=== PATIENT | male | born 1935 | race Caucasian/White ===

== ENCOUNTER 2020-10-02 08:23 | Outpatient (CLI) | payer MEDICARE, MEDICAID, SELFPAY ==
[2020-10-02 08:28] VITALS: BMI 22.9
--- NOTE | 2020-10-02 08:52 | ECG_ITS ---
[facility] Test Date: 2020-10-02 Pat Name: Chapo Chao Department: Room: Gender: Male Broom Stitcher: : 1935 Requested By: Poonam Miller Order Number: [id number] Kamala MD: Poonam Miller M.D. Interpretive Statements NAME OF STUDY: LEXISCAN SESTAMIBI STRESS TEST INDICATION: CAD, Pre op clearnce PROCEDURE: At the baseline, the blood pressure was 139/95 mmHg with a heart rate of 56 bpm. The electrocardiogram showed sinus bradycardia with isolated PVCs, normal axis. Poor anterior R wave progression. Nonspecific ST depression. The Lexiscan was infused over a period of 20 seconds. A total of 0.4 milligrams of Lexiscan was infused. The stress phase was continued for a total of 5 minutes. Heart rate at the end of the stress phase was 70 bpm with a blood pressure 139/90 mmHg. The EKG at the peak infusion revealed sinus rhythm at 70 bpm with no significant ST-T wave changes. Sestamibi was injected 20 seconds after the Lexiscan infusion. Blood pressure at the end of the recovery phase was 158/87 mmHg with a heart rate of 62 beats per minute. CONCLUSION: 1. No significant EKG changes with the LexiScan infusion 2. No LexiScan induced chest pain or cardiac arrhythmia. 3. Normal blood pressure and heart rate response. 4. Sestamibi/sestamibi perfusion scan pending; see separate report. Electronically Signed On 10-02-2020 20:03:23 COOLING TOWER OPERATOR by Poonam Miller M.D. [id number]
--- NOTE | 2020-10-02 08:53 | NMCV_ITS ---
NM fernando perf SPECT r/s* [id number] Chapo Chao Age: 84 Gender: M : 1935 Exam Date: 10/02/2020 09:47 Ordering Phys: Poonam Miller MD ([email or web address]) Technologist: GREG Yan Exam Location: [facility] Indications: Coronary artery disease, Pre op clearance, AAA STRESS TEST Please see separate stress test report in Ephiphany for full findings IMAGE PROTOCOL Rest/Stress 1 Lexiscan Day Radiopharmaceutical Dose (mCi) Administration Site Administered by Rest: Tc-99m 10.9 IV GREG Yan Sestamibi Stress:Tc-99m 32.4 IV GREG Yan Sestamibi Rest: 02-Oct-2020 60 Discovery 630 Stress: 02-Oct-2020 45 Discovery 630 0.4mg Lexiscan. Images obtained in supine and prone position. SPECT RESULTS Technical Quality: Good Raw Data Analysis: Normal Image Corrections: Patient motion artifact - motion correction applied to stress supine only Summed Stress Score: 20 Summed Rest Score: 19 Summed Difference Score: 2 PERFUSION FINDINGS Large sized perfusion abnormality of entire inferior, mid to apical inferoseptal, mid to apical inferolateral and apical smith on rest and stress images. FUNCTIONAL RESULTS (calculated via Gated SPECT) Stress Image LV EF (%): 38 Stress EDV (mL):94 TID: 0.86 Stress ESV (mL):58 FUNCTIONAL FINDINGS: The left ventricle is normal in size. Transient Ischemia Dilatation of 0.86. The left ventricular ejection fraction is moderately reduced with a value of 38%. There is global hypokinesis more prononunced in inferior, mid to apical lateral and apical smith. IMPRESSIONS 1. Large sized predominantly fixed perfusion abnormality of entire inferior, mid to apical inferoseptal, apical lateral and apical smith. 2. This is suggestive of old myocardial infarction in right coronary artery and circumflex artery territory or attenuation artifact. 3. The left ventricular ejection fraction is moderately reduced with a value of 38%. 4. There is global hypokinesis more prononunced in inferior, mid to apical lateral and apical smith. 5. No significant coronary ischemia based on this study. Poonam Miller MD (Electronically Signed) Final Date: 07 October 2020 08:35 S
[2020-10-02 10:30] VITALS: BP 158/87; PULSE 66
[2020-10-02] MEDS: regadenoson 0.4 Mg/5 ml Syringe IVP (10:32)
--- NOTE | 2020-10-02 12:45 | USCV_ITS ---
Chapo Chao Age: 84 Gender: M : 1935 Exam Date: 10/02/2020 08:45 Ordering Phys: Poonam Miller MD ([email or web address]) Technologist: Mingo Rivas Exam Location: [facility] [place] Indication: CAROTID ARTERY STENOSIS Risk Factors: Previous Vascular Surgery: Right Brachial BP: / Left Brachial BP: / Right Left Velocity (cm/s) Spectral Plaque Velocity (cm/s) Spectral Plaque Syst/Diast Broadening Syst/Diast Broadening 50.65/ 10.45 Prox CCA 64.90 / 12.20 66.70/ 14.80 Mid CCA 52.60 / 9.90 50.60/ 10.80 Distal CCA 39.30 / 6.40 87.80/ 19.40 Prox ICA 100.20/ 29.50 83.10/ 18.60 Mid ICA 55.10 / 17.40 94.80/ 25.60 Distal ICA 49.90 / 18.00 102.50 ECA 68.40 1.25 ICA/CCA 1.05 Antegrade Vertebral Antegrade 55.90/ 11.70 cm/s 46.70/ 11.20 cm/s Tri Subclavian Tri 64.60 83.10 CONCLUSIONS Right ICA stenosis <50%. Mild atheromatous plaque right carotid bulb/ICA. Left ICA stenosis <50%. Mild atheromatous plaque left carotid bulb/ICA. Normal antegrade Doppler flow noted in the right vertebral artery. Normal antegrade Doppler flow noted in the left vertebral artery. Adrian Briseno MD (Electronically Signed) Final Date: 02 October 2020 17:50 S
== END 2020-10-02 08:24 | disposition home or self-care (01) ==
PROVIDERS: PCP Family Medicine; Visit Provider Internal Medicine Cardiovascular Disease
DX: I65.23 Occlusion and stenosis of bilateral carotid arteries (principal); I25.10 Atherosclerotic heart disease of native coronary artery without angina pectoris; I71.4 Abdominal aortic aneurysm, without rupture
CPT/HCPCS: 78452; 93017; 93880; A9500; J2785

== ENCOUNTER → 2020-11-26 12:00 | Outpatient (BNVA) | payer MEDICARE, MEDICAID, SELFPAY | PROVIDERS: PCP Family Medicine; Visit Provider Thoracic Surgery (Cardiothoracic Vascular Surgery) | DX: Z20.822 Contact with and (suspected) exposure to COVID-19 (principal); I71.4 Abdominal aortic aneurysm, without rupture | CPT/HCPCS: 87635 ==

== ENCOUNTER 2020-12-03 15:25 | Inpatient (IN) | payer MEDICARE, MEDICAID, SELFPAY ==
[2020-11-26 11:19] VITALS: BMI 22.8
--- NOTE | 2020-11-26 15:30 | ANES.PREANE2 ---
Pre-Anesthetic Assessment Pre-Anesthetic Assessment: Height/Weight: Height 1.78 m Weight 72.121 kg Proposed Procedure: Operation Date: 12/03/20 07:00 Proposed Procedures p Endovascular Aortic Repair(Not Applicable) - Barron Naidu MD Operation Date: 12/03/20 07:00 Proposed Procedures p Endovascular Aortic Repair(Not Applicable) - Barron Naidu MD Was Beta Cecil taken within 24 hours: Yes Social: Social History: Tobacco and No alcohol Exam: Pre-Anes Outpt Exam: alert, oriented x 3 and regular rate & rhythm Airway: Submandibular: WNL Cervical ROM: WNL MP: 2 Dentition: False Pulmonary: Pulmonary: COPD CV/HEM: CV/HEM: CAD, HTN and PVD Comments: AAA GI: GI: GERD Anesthetic Plan: ASA status: 3 Anesthesia: General Other: A.line Risk of > 500 ml blood loss (7ml/kg in children): Yes, adequate IV access and fluids planned PFSH Anesthesia PFSH: Medical History Abdominal aortic aneurysm (AAA) COPD (chronic obstructive pulmonary disease) Coronary artery disease Diabetes HTN (hypertension) Surgical History History of coronary artery stent placement Hx of tonsillectomy Family History Other CAD (coronary artery disease) Diabetes Social History Smoking and tobacco status: former smoker Alcohol intake: current Alcohol intake frequency: other Data Anesthesia Cardiac Studies: No Data to Display
--- NOTE | 2020-12-01 08:23 | XR_ITS ---
WS: [id number] XR chest 2V* [id number] REASON FOR EXAM: Preop for AAA repair FINDINGS: The chest appears stable compared to previous examination of 10/15/2015. There is mild tortuosity and calcification of the thoracic aorta. No aneurysmal dilatation. Normal he art size. Large hiatal hernia with gastric retention in the mid and lower esophagus. Calcified granulomatous disease in both hemithoraces. No active pulmonary parenchymal or pleural dise ase. Decreased bony density with mild biconcave compression deformities in the mid and lower thoracic spin e. XR/XR chest 2V* [id number] IMPRESSION: Large hiatal hernia. No acute chest abnormality.
--- NOTE | 2020-12-01 10:33 | ECG_ITS ---
[facility] Test Date: 2020-12-01 Pat Name: Chapo Chao Department: Room: Gender: Male Director Of Convention Services: : 1935 Requested By: Barron Naidu Order Number: [id number] Kamala MD: Keri Fung M.D. Measurements Intervals [place] Rate: 69 P: -3 DC: 145 QRS: 28 QRSD: 114 T: 66 QT: 403 QTc: 434 Interpretive Statements SINUS RHYTHM LATERAL MYOCARDIAL INFARCTION [40+ ms Q WAVE AND/OR ST/T ABNORMALITY IN I/aVL/V5/V6], OF INDETERMINATE AGE INFERIOR MYOCARDIAL INFARCTION [40+ ms Q WAVE AND/OR ST/T ABNORMALITY IN II/aVF], PROBABLY OLD Compared to ECG 03/31/2015 20:53:13 Ventricular premature complex(es) no longer present Myocardial infarct finding still present Electronically Signed On 12-01-2020 23:56:59 CDT by Keri Fung M.D. [email or web address] [email or web address]/store/[id number]
[2020-12-01 10:34] LABS: Basophils # 0.1 10^3/uL (0.0-0.1); Basophils % 0.8 %; Eosinophils # 0.1 10^3/uL (0.0-0.8); Eosinophils % 1.8 %; Hematocrit 43.6 % (42.0-52.0); Hemoglobin 13.5 g/dL (11.7-16.6); Lymphocytes # 1.3 10^3/uL (0.8-4.8); Lymphocytes % 22.5 %; Mean Corpuscular Hemoglobin 28.8 pg (28.0-34.0); Mean Corpuscular Volume 93.2 fL (80-94); Mean Platelet Volume 10.7 fL (7.4-10.4); Monocytes # 0.6 10^3/uL (0.2-0.9); Monocytes % 9.2 %; Neutrophils # 3.87 10^3/uL (1.8-7.7); Neutrophils % 65.2 %; Nucleated Red Blood Cells % 0 %; Platelet Count 314 10^3/cmm (130-400); Red Blood Count 4.68 10^6/uL (4.1-5.3); Red Cell Distribution Width 14.5 % (12.1-15.1)
[2020-12-01 10:34] LABS: Add Urine Microscopic? NO
[2020-12-01 10:47] LABS: Bilirubin Urine Neg (Negative); Blood Urine Neg (Negative); Glucose Urine UA Norm (Normal); Ketones Urine Negative (Negative); Leukocyte Esterase Urine Negative (Negative); Nitrate Urine Negative (Negative); Protein Urine Neg (Negative); Urine Appearance Clear (CLEAR); Urine Color Yellow (Yellow); Urobilinogen Urine Norm (Negative); pH Urine 7 (5-7)
[2020-12-01 11:07] LABS: INR 1.01 (0.8-1.2)
[2020-12-01 11:09] LABS: Anion Gap 12.6 (5-19); Blood Urea Nitrogen 9 mg/dL (8-23); Calcium 9.6 mg/dL (8.5-10.5); Carbon Dioxide 26 mmol/L (22-29); Chloride 99 mmol/L (98-107); Glucose 133 mg/dL (65-115); Osmolality Calculated 277 mOsm/kg (285-295); Potassium 4.6 mmol/L (3.5-5.1); Sodium 133 mmol/L (136-145)
[2020-12-03] VITALS (40 sets, daily range): BP systolic 129–171; BP diastolic 72–102; PULSE 55–84; RESP 6–25; TEMP 36.5–36.6; O2SAT 86–100
--- NOTE | 2020-12-03 06:57 | PM.HP ---
Providers/Chief Complaint Admitting Physician: Dr. Naidu/cardiothoracic surgery Primary Care Provider: Rosangela Souza MD Chief Complaint: Endovascular Aortic Repair History of Present Illness Chapo Chao is an 85 year old Gentleman whom I saw originally in consultation back on September [id number] upon referral for finding incidentally of abdominal aortic aneurysm during chiropractic evaluation and plain film x-ray for lower back pain. This was followed up with a CT scan of the abdomen and pelvis at [facility] in [facility] which revealed a 5.8 x 5.2 cm infrarenal abdominal aortic aneurysm with a large mural thrombus. 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 Moist renal arteries on the left. He is undergone evaluation and planning by [facility] for endovascular aneurysm repair. Mr. Chao remains asymptomatic in relation to his abdominal aneurysm. He has a history of cardiovascular disease status post coronary stenting in 1994 and follow-up stenting in about 2004. He currently is followed by Dr. Miller. He underwent preoperative evaluation which included sestamibi bone stress testing which revealed large old defects in the inferior wall consistent with RCA or circumflex disease. There were no delayed reperfusion abnormalities that would be consistent with coronary ischemia. Ejection fraction calculated at approximate 38%. He does use intermittent oxygen at night but not during the day. He has no claudication symptoms. He is a retired clamp truck driver. He has remote history of tobacco use. Review of systems is mostly pertinent with dyspnea on exertion and dyspepsia. He is noted to have a large hiatal hernia. No history for major GI hemorrhage. He does have chronic back pain. Which resulted in the original chiropractic examination and subsequent plain film x-ray identifying the abdominal aneurysm. Review of Systems Const: Reports: fatigue; Denies: fever(s), chills, change in appetite, change in weight or night sweats Eyes: Denies: change in vision or blurry vision ENMT: Denies: odynophagia or hoarseness Card: Reports: dyspnea on exertion; Denies: chest pain, palpitations, irregular heart rhythm or edema Resp: Reports: dyspnea (With exertion but not at rest); Denies: productive cough GI: Denies: abdominal pain, nausea, vomiting, dysphagia, heartburn or change in bowel habits : Denies: difficulty urinating, dysuria, urinary frequency, urinary urgency or urinary hesitancy Musc: Denies: extremity pain or extremity swelling Skin/Breast: Denies: rash Neuro: Denies: headache(s), numbness in extremities, weakness in extremities or sensory changes Psych: Denies: anxiety, depression or change in appetite Endo: Denies: polyuria, polydipsia or cold intolerance Taran/Lymph: Denies: easy bruising, easy bleeding, petechiae or enlarged lymph nodes Medications/Allergies Home Medications Medication Instructions Recorded Confirmed Last Taken Type albuterol sulfate 90 mcg/actuation 1 inh INHALATION QID 08/22/20 11/26/20 Unknown History aerosol inhaler aspirin 81 mg tablet,delayed 81 mg PO DAILY 08/22/20 11/26/20 Unknown History release atorvastatin 80 mg tablet 80 mg PO DAILY 08/22/20 11/26/20 Unknown History cetirizine 10 mg tablet 5 mg PO DAILY PRN 08/22/20 11/26/20 Unknown History esomeprazole magnesium 40 mg 40 mg PO DAILY 08/22/20 11/26/20 Unknown History capsule,delayed release losartan 25 mg tablet 25 mg PO DAILY 08/22/20 11/26/20 Unknown History metformin 500 mg tablet 500 mg PO BID 08/22/20 11/26/20 Unknown History metoprolol tartrate 50 mg tablet 50 mg PO BID 08/22/20 11/26/20 Unknown History fluticasone furoate-vilanterol 1 inh INHALATION DAILY 11/26/20 11/26/20 Unknown History [Breo Ellipta] Allergies Allergy/AdvReac Type Severity Reaction Status Date / Time ibuprofen [From Advil] Allergy ALGY-Anaphy Verified 11/28/20 08:23 laxis naproxen Allergy ALGY-Anaphy Verified 11/28/20 08:23 laxis Penicillins AdvReac Severe severe Verified 11/28/20 08:23 PFSH Acute PFSH: Medical History Abdominal aortic aneurysm (AAA) COPD (chronic obstructive pulmonary disease) Coronary artery disease Diabetes HTN (hypertension) Surgical History History of coronary artery stent placement Hx of tonsillectomy Family History Other CAD (coronary artery disease) Diabetes Social History Smoking and tobacco status: former smoker Alcohol intake: current Alcohol intake frequency: other Physical Exam Const: COMMON NORMALS: patient oriented x3 and alert ORIENTATION/CONSCIOUSNESS: Yes oriented to person, Yes oriented to place and Yes oriented to time HENMT: COMMON NORMALS: normocephalic HEAD & SCALP: normocephalic Neck/C-Spine: COMMON NORMALS: full ROM, supple, no JVD and No carotid bruits GENERAL: Yes trachea midline CERVICAL SPINE: Yes cervical ROM normal Chest: COMMONS NORMALS: normal inspection of the chest and normal palpation of entire chest wall Resp: COMMON NORMALS: normal respiratory effort, No use of accessory muscles, clear to auscultation bilaterally and percussion normal EFFORT & INSPECTION: Yes able to speak in complete sentences and Yes symmetric chest movement AUSCULTATION: clear to auscultation bilaterally PERCUSSION: percussion normal Cardio: COMMON NORMALS: no JVD, regular rate, regular rhythm, S1 normal heart sound present, S2 normal heart sound present, No gallops present (Cardio), No murmurs present (Cardio), No rub (Cardio) and Peripheral pulses 2+ throughout JUGULAR VENOUS DISTENTION: no JVD RATE: regular rate RHYTHM: regular rhythm HEART SOUNDS: S1 normal heart sound present and S2 normal heart sound present PERIPHERAL PULSES: radial pulses present positive bilateral 2+, femoral pulses present positive bilateral 2+, posterior tibial pulses present positive bilateral 1+ and dorsalis pedis present positive bilateral 2+ GI: COMMON NORMALS: Soft to palpation, non-tender and no bruits INSPECTION: Yes normal to inspection AUSCULTATION: Yes normoactive bowel sounds and No Abdominal bruit PALPATION: Yes Pulsatile mass present Neuro: COMMON NORMALS: patient oriented x3, no focal motor deficits and no sensory deficits noted SENSORIUM/ORIENTATION: Yes alert, Yes oriented to person, Yes oriented to place and Yes oriented to time GAIT: Yes Normal gait present Data : 12/01/20 10:20 12/01/20 10:20 A&P Assessment and plan (1) Abdominal aortic aneurysm (AAA): Pleasant 85-year-old gentleman with incidental finding of a 5.8 x 5.2 cm asymptomatic infrarenal abdominal aortic aneurysm. Recommendation for attempt at endovascular repair was carefully and frankly discussed. The time of his original consultation with me back in August, his daughter was present as we discussed the general conduct in particular risk of this procedure. Potential need for open repair related to technical difficulties are catastrophic bleeding were discussed. Related to his age and comorbidities, the strong recommendation to attempt endovascular repair was discussed and agreed. Details and risks of the procedure were carefully and frankly discussed. Risks reviewed include the possibility of , stroke, heart attack, major bleeding, infection, pneumonia, organ failure, failure to benefit, prolonged hospital stay, pain after the procedure, need for further procedures, acute ischemia of the lower extremities requiring further procedures or possible major amputation, acute ischemia to the kidneys resulting in renal failure or ischemia to major abdominal organs resulting in catastrophic abdominal ischemia, inability to complete the procedure, and need for long-term followup and surveillance. All questions were answered. Appropriate consents have been provided for review and signature. Status: Acute Attestations Medical Necessity Statement*: 5.8 cm infrarenal abdominal aortic aneurysm Time Spent in Patient Care: Greater than 35 minutes Coding Level of Care Code Acute Map Compiler for [facility] Nati Diagnoses Abdominal aortic aneurysm (AAA) I71.4
--- NOTE | 2020-12-03 13:08 | P.ANESUD_ITS ---
Pre-Anesthetic Update Pre-Anesthetic Assessment: Date of Surgery/Procedure: 12/03/20 Preop Kaylin gnosis: Abdominal aortic aneurysm Proposed Procedure: Operation Date: 12/03/20 07:00 Proposed Procedures p Endovascular Aortic Repair(Not Applicable) - Barron Naidu MD Operation Date: 12/03/20 07:00 Proposed Procedures p Endovascular Aortic Repair(Not Applicable) - Barron Naidu MD Any changes to Pre-Anesthetic Assessment?: No Labs Last 48hrs: Laboratory Results - last 48 hr 12/01/20 10:20 Blood Type O Positive Rho(D) Type Positive / 4+ Antibody Screen Negative Crossmatch See Detail Vitals: Temperature 97.7 F 12/03/20 07:28 Temperature Source Oral 12/03/20 07:28 Pulse Rate 55 L 12/03/20 07:28 Pulse Rhythm 12/03/20 07:29 Pulse Strength 3+ Normal 12/03/20 07:29 Respiratory Rate 15 12/03/20 07:28 Blood Pressure 155/86 12/03/20 07:28 Blood Pressure Harika n 109 12/03/20 07:28 Pulse Oximetry 93 12/03/20 07:28 Oxygen Delivery Me thod 12/03/20 07:28 Exam: Pre-Anes Outpt Exam: alert, oriented x 3, clear to auscultation bilaterally and regular rate & rhythm Cardiac Studies: No Data to Display
--- NOTE | 2020-12-03 16:20 | ANES.PROC ---
Anesthesia Procedures Procedure/Date: 12/03/20 Arterial Line: Time Out Performed: Yes Consent: requested by attending/covering physician, from patient, risks and benefits reviewed and patient agrees to proceed Size (Gauge): 20 Technique Used: direct puncture technique Post-Procedure: dry sterile dressing placed Patient Tolerated Procedure: well Complications: none Site: left Additional Comments: Attempted right radial several times without success, several attempts on left before success.
--- NOTE | 2020-12-03 16:21 | ANE.PACU2 ---
Inpatient post-anesthesia follow up: Airway intact: Yes Vital signs: Temperature 97.7 F Pulse Rate 69 Respiratory Rate 16 Blood Pressure 155/86 Pulse Oximetry 97 Oxygen Delivery Me thod Simple Mask Oxygen Flow Rate 7 Fraction of Inspir ed Oxygen Hydration adequate: Yes Nausea and vomiting: No Pain level: 1 Additional Comments: Sedated, to ICU
--- NOTE | 2020-12-03 17:06 | P.OP_ITS ---
Operative Report Date of procedure: December 03, 2020 Pre-op Diagnosis: Abdominal aortic aneurysm Post-op diagnosis: same Procedure Done: Endovascular abdominal aortic aneurysm repair [facility] 25 x 100 main body bifurcated graft with a 28 x 95 suprarenal extension Pathology: none sent Surgeon: Barron Naidu Bend Sorter: Ana Cristina Moon Anesthesia: General Complications: None Condition: stable Disposition: ICU Brief History: 85-year-old gentleman with a 5.8 x 5.2 cm infrarenal abdominal aortic aneurysm. Careful preop evaluation was completed in the recommendation to consider endovascular repair was discussed with patient and family. All were in agreement. He was therefore admitted for planned attempt at percutaneous repair. Procedure: Mr. Chao was taken to the catheterization lab, carefully positioned, and then underwent general endotracheal anesthesia. Appropriate invasive lines were placed including left radial arterial line and adequate vascular access. His lower chest and entire abdomen, groin region, and thighs were sterilely prepped and draped. A cutdown was performed in the right and left groins exposing the right and left common femoral arteries. Flow femoral arteries were engaged with a introducer needle and guidewires were placed with a subsequent 7 Bengali catheter placed on the right and left sides. He then received 10,000 units of heparin and ACT was confirmed to be therapeutic. A J-wire was utilized to be exchanged on the ipsilateral side to a [employer] stiff wire. Next, a loaded 25 x 100 AFX2 bifurcated device and delivery sheath were placed over the stiff wire and advanced along with the contralateral wire up through the 19 Bengali AFX introducer sheath utilizing wireguide. The contralateral wire was then snared and pulled out through the left common femoral artery. The AFX2 bifurcated device was transferred into the AFX introducer sheath and advanced under fluoroscopic guidance until distal limbs were above the aortic bifurcation thereby releasing the limbs of the graft. The entire system was pulled down to the aortic bifurcation. The main body of the bifurcated graft was then deployed by pulling on the controlled cord handle. Next, we deployed the contralateral limb by pulling the yellow limb cover, advancing a pigtail catheter over the contralateral wire into the tip was in contact with the wire lock, with wire lock being released by pulling it with a stationary pigtail catheter in position. The ipsilateral limb was then deployed by pinning the inner core and retracting the AFX introducer sheath. Next, we advanced and deployed a 28 x 95 supra extension endograft after digital subtraction angiography was performed to visualize the renal arteries. Iliac extensions were not required. Next, we removed the extension delivery device from the AFX introducer sheath. . 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 Moon. Next, catheters, sheaths, and guidewires were removed under fluoroscopic guidance. Perclose device was then utilized to close the [right/left] common femoral artery insertion site. This was noted to be hemostatic Common femoral arteries were repaired directly utilizing interrupted 5-0 and 6-0 Prolene suture. There was good backbleeding and forward bleeding was prior to completion of the repair. Flow was then reestablished. 50 mg of protamine was given for heparin reversal. Groin wounds was noted to be hemostatic. They were irrigated with antibiotic solution. Sponge and needle count was correct. Wounds was closed in 2 layers of 2-0 Vicryl suture and then 3-0 Vicryl suture. Skin was reapproximated in a subcuticular manner with 4-0 Monocryl suture. Skin adhesive was applied sterile dressings were applied. He had palpable dorsalis pedis pulses bilaterally at completion of the procedure. He was awakened and extubated on the catheterization table. Mr. Chao was then transferred to the ICU in stable condition. I did financial aid counselor with his daughter at the completion of the procedure.
[2020-12-03] MEDS: lactated ringers 1,000 ML 100 ML IV (18:22)
[2020-12-03] MEDS: metoprolol tartrate 50 mg Tablet PO (18:24)
--- NOTE | 2020-12-03 18:59 | PC.NURSE ---
Patient arrived from OR with a triple A repair, patient has bilateral groin sites, both look good, no swelling, or bruising present. Monitored groin sites every 15 min for the first hour then every 30 after, patient able to sit up 30 degrees after 1800 and tolerating it well sites still look good. Patient was very sleepy initially but now is a lot more alert and awake, came by to check on patient and ordered a diet for later and resumed some of his home meds. Patient is appropriate and cooperative, daughter was at bedside at 1730 and visiting with patient.
[2020-12-03 19:52] LABS: Glucose Point of Care 113 mg/dL (70-110)
[2020-12-03] MEDS: TRAMadol 50 mg Tablet PO (19:57)
[2020-12-03] MEDS: losartan 50 mg Tablet 25 MG PO (19:58)
[2020-12-03] MEDS: diphenhydrAMINE 25 mg Capsule PO (19:58)
[2020-12-03] MEDS: albuterol 8 gm MDI 1 PUFF INHALATION (20:24)
[2020-12-03 20:28] LABS: Glucose Point of Care 118 mg/dL (70-110)
[2020-12-03] MEDS: alum-mag-hydroxide-sime 30 mL UDC PO (20:45)
[2020-12-04] VITALS (8 sets, daily range): BP systolic 136–147; BP diastolic 72–82; PULSE 66–74; RESP 16–22; O2SAT 93–96
[2020-12-04] MEDS: alum-mag-hydroxide-sime 30 mL UDC PO (00:18)
[2020-12-04] MEDS: HYDROcodone-acetaminophen 5-325 mg Tablet 1 TAB PO ×2 (02:30→14:19)
[2020-12-04] MEDS: lactated ringers 1,000 ML 100 ML IV (04:32)
--- NOTE | 2020-12-04 07:06 | P.PN_ITS ---
Subjective Subjective: Interval history: POD #1 status post endovascular repair Of infrarenal AAA. Uneventful night. Did require nitroglycerin for just a bit for some modest hypertension. Postop discomfort under good control. Patient is eager to increase activities. Vitals/I&O/Wt Last Vital Signs Temp 97.9 F 12/03/20 23:00 Pulse 68 12/04/20 06:00 Resp 17 12/04/20 02:00 BP 136/74 12/04/20 02:00 Pulse Ox 96 12/04/20 02:00 12/03/20 12/04/20 12/04/20 22:59 06:59 14:59 Intake Total 400 / 400 1500 / 1900 Output Total 600 / 600 500 / 1100 Balance -200 / -200 1000 / 800 Physical Exam Resp: COMMON NORMALS: normal respiratory effort, No use of accessory muscles and clear to auscultation bilaterally AUSCULTATION: clear to auscultation bilaterally Cardio: COMMON NORMALS: regular rate, regular rhythm, S1 normal heart sound present, No murmurs present (Cardio) and No rub (Cardio) RATE: regular rate RHYTHM: regular rhythm HEART SOUNDS: S1 normal heart sound present PERIPHERAL PULSES: dorsalis pedis present positive bilateral 3+ OTHER: No evidence for embolic phenomenon. No discomfort. Extremity: OTHER: Bilateral surgical groin dressings are clean and dry. No substantial swelling. Data : 12/01/20 10:20 12/01/20 10:20 A&P Assessment and plan (1) History of repair of aneurysm of abdominal aorta using endovascular stent graft: Postop day #1 Plan: Hep-Lock IV, DC Johnson catheter, out of bed with assistance, plan for discharge to home later today with home health services. Status: Acute Attestations Medical Necessity Statement*: Postop day #1 status post EVAR Time Spent in Patient Care: 16 - 35 minutes Procedures Arterial Line Size (Gauge): 20 Coding Level of Care Code Acute Manager Maintenance for Kurt Damian Diagnoses History of repair of aneurysm of abdominal aorta using endovascular stent graft Z95.828
[2020-12-04 08:02] LABS: Glucose Point of Care 210 mg/dL (70-110)
[2020-12-04] MEDS: albuterol 8 gm MDI 1 PUFF INHALATION (08:27)
[2020-12-04] MEDS: TRAMadol 50 mg Tablet PO (08:55)
[2020-12-04] MEDS: aspirin 81 mg EC Tablet PO (08:57)
[2020-12-04] MEDS: atorvastatin 40 mg Tablet 80 MG PO (08:57)
[2020-12-04] MEDS: metoprolol tartrate 50 mg Tablet PO (08:57)
[2020-12-04] MEDS: losartan 50 mg Tablet 25 MG PO (08:58)
[2020-12-04] MEDS: pantoprazole DR 40 mg Tablet PO (08:59)
[2020-12-04] MEDS: docusate sodium 100 mg Capsule PO (08:59)
[2020-12-04] MEDS: cetirizine 10 mg Tablet 5 MG PO (08:59)
--- NOTE | 2020-12-04 12:19 | P.DS_ITS ---
Discharge Providers Date of Admission: 12/03/20 15:25 Date of Discharge: December 04, 2020 Attending Provider at Admission: Barron Naidu MD Attending Provider at Discharge: Barron Naidu MD Primary Care Provider: Rosangela Souza MD Diagnoses at Discharge Discharge Diagnosis (1) History of repair of aneurysm of abdominal aorta using endovascular stent graft: Status: Acute Reason for Visit Reason for Visit: Endovascular Aortic Repair Hospital Course Hospital Course Mr. Chao is an 85-year-old gentleman electively admitted on December 03 for planned endovascular pair of a 5.8 cm abdominal aortic aneurysm found incidentally during evaluation for back pain. He underwent careful preoperative evaluation. Yesterday, he underwent endovascular pair utilizing a 25 x 100 bifurcated Endologix graft with a 28 x 95 suprarenal extension. Postoperative, he convalesced in the ICU where he continued to do well with some mild postop hypertension controlled with IV nitroglycerin until his home medications had been reinstituted. He has 3+ bilateral dorsalis pedis pulses. Groin sites are clean and dry without swelling. He has ambulated with assistance. Tolerating diet. Postoperative discomfort is been under good control. Vital signs remained stable. He will be discharged home today with home health services arranged, in stable condition. He will be scheduled to follow-up in my clinic in 1 week. Physical Exam Resp: COMMON NORMALS: normal respiratory effort and clear to auscultation bilaterally AUSCULTATION: clear to auscultation bilaterally Cardio: COMMON NORMALS: regular rate, regular rhythm, S1 normal heart sound present, No murmurs present (Cardio) and No rub (Cardio) RATE: regular rate RHYTHM: regular rhythm HEART SOUNDS: S1 normal heart sound present PERIPH ERAL PULSES: dorsalis pedis present positive bilateral 3+ Extremity: COMMON NORMALS: normal to inspection and no pedal edema OTHER: Surgical groin dressings are clean and dry. No evidence for swelling or drainage. 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 Routin e Exams 12/03/20 11:33 Completed XR chest 2V* 7104 6 Routine Exams 12/01/20 08:23 Completed Pending at discharge Category Date Time Status Basic Metabolic P clarissa Routine Lab 12/01/20 08:23 Uncollected Complete Blood Co unt w/Auto Routine Lab 12/01/20 08:23 Uncollected Leukocyte Reduced RBC Routine Lab 12/01/20 10:20 Results Prothrombin Time INR Routine Lab 12/01/20 08:23 Uncollected Type and Screen R outine Lab 12/01/20 08:23 Uncollected Type and Screen R outine Lab 12/01/20 10:20 Results Urinalysis Routin e Lab 12/01/20 08:23 Uncollected Labs from last 24 hours 12/04/20 12/03/20 12/03/20 07:30 20:02 17:15 POC Glucose 210 H 118 H 113 H Blood Type Rho(D) Type Antibody Screen Crossmatch 12/01/20 10:20 POC Glucose Blood Type O Positive Rho(D) Type Positive / 4+ Antibody Screen Negative Crossmatch See Detail Vitals: Last Vital Signs Temp 97.9 F 12/03/20 23:00 Pulse 68 12/04/20 08:30 Resp 16 12/04/20 08:29 BP 136/74 12/04/20 02:00 Pulse Ox 93 12/04/20 08:29 Discharge Plan Discharge Patient Disposition: Home Health Service Condition: Stable Prescriptions: New hydrocodone-acetaminophen 5-325 mg Tablet 1 tab PO Q6H PRN (Reason: Moderate Pain) Qty: 16 RF: 0 sulfamethoxazole-trimethoprim [Bactrim DS] 800-160 mg tablet 1 tab PO DAILY 3 Days Qty: 6 RF: 0 Continued esomeprazole magnesium [Nexium] 40 mg capsule,delayed release(DR/EC) 40 mg PO DAILY RF: 0 metformin 500 mg tablet 500 mg PO BID RF: 0 aspirin 81 mg tablet,delayed release (DR/EC) 81 mg PO DAILY RF: 0 albuterol sulfate [Ventolin HFA] 90 mcg/actuation HFA aerosol inhaler 1 inh inhalation QID RF: 0 losartan 25 mg tablet 25 mg PO DAILY RF: 0 cetirizine [24Hour Allergy] 10 mg tablet 5 mg PO DAILY PRN (Reason: Allergy Symptoms) RF: 0 atorvastatin 80 mg tablet 80 mg PO DAILY RF: 0 metoprolol tartrate 50 mg tablet 50 mg PO BID RF: 0 Breo Ellipta 200-25 mcg/dose blister with device 1 inh INHALATION DAILY RF: 0 Discharge Orders: Discharge Order (Routine); Ordered 12/04/20 Ordered By: Barron Naidu Referrals: Barron Naidu MD [Physician] - 1 week Discharge Diet: Usual diet Discharge Activity: Limit activity as instructed Activity Restrictions/Additional Instructions: No heavy lifting or pulling x2 weeks Bandages may be removed tomorrow May begin daily showers on December 06 No swimming or tub baths x2 weeks Report any redness, swelling, drainage, from incisions or increased pain. Report any fever. Discharge Attestations Time Spent in Discharge Care*: less than 30 min Specific Discharge Activities: educating patient, educating and/or supporting family/caregiver, discussing with protective services case worker/social workers/dc planners, documenting/other paperwork and evaluating patient/reviewing data Status at Discharge: Cognitive status at discharge: cognitively intact , Functional status at discharge: other assisted ambulation Overall status at discharge: patient is progressing back to baseline Quality Metrics Clinical Quality Measures During this hospital stay, did patient experience: None Coding Level of Care Code Acute [facility] DC note Diagnoses History of repair of aneurysm of abdominal aorta using endovascular stent graft Z95.828
[2020-12-04 12:27] LABS: Glucose Point of Care 136 mg/dL (70-110)
[2020-12-04] MEDS: ondansetron 2 mg/ML SDV 2 mL 4 MG IVP (12:54)
--- NOTE | 2020-12-04 15:08 | PC.NURSE ---
Patient's discharge packet reviewed with patient et patient's daughter. Dates et times of follow-up appointments reviewed. Patient ambulated to wheelchair et was discharged home with daughter Geena. Patient had no belongings with him.
--- NOTE | 2020-12-04 15:37 | PC.NURSE ---
discharge education reviewed with patient's daughter Geena et patient. Patient is very hard of hearing et likely does not fully understand discharge instructions.
== END 2020-12-04 14:15 | disposition home health service (06) | DRG 269 ==
LOC: ICU 15:26
PROVIDERS: Admitting Provider Thoracic Surgery (Cardiothoracic Vascular Surgery); PCP Family Medicine; Visit Provider Thoracic Surgery (Cardiothoracic Vascular Surgery)
PROC: 04V03ZZ Restriction of Abdominal Aorta, Percutaneous Approach (ICD-10-PCS; principal; 2020-12-03 07:00)
DX: I71.4 Abdominal aortic aneurysm, without rupture (principal); I25.10 Atherosclerotic heart disease of native coronary artery without angina pectoris; Z95.5 Presence of coronary angioplasty implant and graft; I25.2 Old myocardial infarction; Z87.891 Personal history of nicotine dependence; K44.9 Diaphragmatic hernia without obstruction or gangrene; G89.29 Other chronic pain; M54.9 Dorsalgia, unspecified; J44.9 Chronic obstructive pulmonary disease, unspecified; E11.9 Type 2 diabetes mellitus without complications; I10 Essential (primary) hypertension; Z79.82 Long term (current) use of aspirin; Z79.51 Long term (current) use of inhaled steroids; Z79.84 Long term (current) use of oral hypoglycemic drugs
CPT/HCPCS: 36415; 36416; 71046; 80048; 81003; 82962; 85025; 85610; 86850; 86900; 86920; 93005; 94640; 94664; 96372; C1725; C1769; C1773; C1887; C1894; J1644; J1815; J2370; J2405; J2704; J2720; J3010; J3490; J3535; J7030; J7050; Q9967

== ENCOUNTER 2021-01-07 13:09 | Outpatient (CLI) | payer MEDICARE, MEDICAID, SELFPAY ==
--- NOTE | 2021-01-07 13:30 | CT_ITS ---
WS: [id number] CT ANGIOGRAPHY abdomen and pelvis AORTA HISTORY: Z95.828 - Presence of other vascular implants and grafts TECHNIQUE: CT angiogram is performed during and post IV injection. Reformation images reviewed. All C T scans at [facility] use at least one of these dose optimization techniques: automated ex posure control; mA and/or kV adjustment per patient size (includes targeted exams where dose is match ed to clinical indication); or iterative reconstruction. CONTRAST: Omnipaque 350; 95 mL IV. DLP: 2669.88 mGycm COMPARISON: 08/22/2020 Chronic emphysematous changes at the lung bases. Normal size heart. Large hiatal hernia. Early enhanc ement of the liver, gallbladder, pancreas, adrenals and spleen are negative for acute process. Visual ized colon is negative with no obstruction or acute inflammation. Kidneys are normally enhancing with no obstruction or ischemic change. 2 small to characterize 5 mm nodule in the posterior mid LEFT kid zaid. No change since 08/22/2020. Abdominal aorta: Patient is status post endovascular stent grafting of the abdominal aorta since the prior study. Stent graft extends from just below the SMA into the proximal common iliac arteries. Ane urysm extends over length of 8 cm with a maximum transverse diameter of 5.6 cm. Normal enhancement of the celiac axis and SMA. No endovascular leak at the proximal stent. Both renal arteries are enhanci ng. Within the thrombus there are curvilinear areas of increased density which are present on the non contrast examination also. No endovascular leak or enlargement of the aneurysm. There is no contracti on around the aneurysm at this time either. No periaortic hematoma. No ascites or fluid. Normally distended urinary bladder. Mild prostate enlargement. CT/CT angio abdomen pelvis 10918 IMPRESSION: 1. Status post endovascular stent graft repair of the large abdominal aortic a neurysm. There is no endovascular leak identified. 2. Stable maximum transverse diameter of the aorta is 5.6 cm. No interval enla rgement of the aneurysm but there is also no contraction of the aneurysm. No pe riaortic hematoma. 3. Normal enhancement of the kidneys. 4. Large hiatal hernia.
[2021-01-07] MEDS: iohexol 350 mg/mL 100 mL Btl IV (14:22)
== END 2021-01-07 13:10 | disposition home or self-care (01) ==
PROVIDERS: PCP Family Medicine; Visit Provider Thoracic Surgery (Cardiothoracic Vascular Surgery)
DX: Z95.828 Presence of other vascular implants and grafts (principal); K44.9 Diaphragmatic hernia without obstruction or gangrene
CPT/HCPCS: 74174; Q9967

== ENCOUNTER 2021-10-09 08:00 | Outpatient (CLI) | payer MEDICARE, MEDICAID, SELFPAY ==
--- NOTE | 2021-10-09 08:45 | USCV_ITS ---
Chapo Chao Age: 85 Gender: M : 1935 Exam Date: 10/09/2021 08:35 Ordering Phys: Barron Naidu MD (Andy) ([email or web address]) Technologist: Janette Barlow Exam Location: [facility] [place] Indication: STENT PRESENT HISTORY: AAA Diameter (cm) AP x Transverse x Length Velocity (cm/s) Waveform Prox Aorta: 1.33 x 1.19 x 44.80 Mid Aorta: 1.74 x 2.10 x 44.80 Distal Aorta: 5.09 x 5.82 x 29.10 Right Iliac Prox: 1.21 x 0.87 x 75.80 Left Iliac Prox: 0.81 x 0.80 x 77.60 Stent Prox Landing x x Aneurysmal Sac Max 5.09 x 5.82 x Lt Lat Sac Dim Rt Lat Sac Dim Stent Dist Landing x x Right Iliac Stent x x Left Iliac Stent x x Right Renal Art 51.00 Left Renal Art 80.00 FINDINGS: Is an aneurysm of the distal abdominal aorta measuring 5.09 x 5.82 cm in diameter. Aortic stent graft appears to be widely patent. Stent graft measured 2.7 cm in diameter at its widest point. The proximal and the mid abdominal aorta was not visualized well. Right iliac artery measures 1.21 x 0.87 cm in diameter. The left iliac artery measured 0.81 x 0.8 cm in diameter. CONCLUSIONS Patient had aortic stent graft . Distal abdominal aortic aneurysm sac measuring 5.09 x 5.82 cm, in diameter. Proximal in the mid abdominal aorta were not visualized well Iliac artery dimensions are within normal limits. Technically difficult study. Consider repeating the study or do a CTA to better evaluate the proximal and mid abdominal aorta and the proximal common leg arteries. Dr Keri Fung MD [facility] (Electronically Signed) Final Date: 11 October 2021 18:28 S
== END 2021-10-09 08:01 | disposition home or self-care (01) ==
PROVIDERS: PCP Family Medicine; Visit Provider Thoracic Surgery (Cardiothoracic Vascular Surgery)
DX: Z95.828 Presence of other vascular implants and grafts (principal); I71.4 Abdominal aortic aneurysm, without rupture
CPT/HCPCS: 93978